=== PATIENT | male | born 1985 | race Two or more races ===

== ENCOUNTER 2020-12-03 17:16 | Emergency (ER) | payer OTHER ==
[~2020-12-03] VITALS: Ht 175.3 cm; Wt 68.0 kg
[2020-12-03] MEDS ORDERED: IBUPROFEN 800 MG TAB PO ONE (19:30)
[2020-12-03 19:52] VITALS: BP 139/92
== END 2020-12-03 20:55 | disposition home or self-care (01) ==
LOC: ER 17:20
DX: S16.1XXA Strain of muscle, fascia and tendon at neck level, initial encounter (principal); R51.9 Headache, unspecified; R07.89 Other chest pain; V43.52XA Car driver injured in collision with other type car in traffic accident, initial encounter; Y93.89 Activity, other specified; Y92.410 Unspecified street and highway as the place of occurrence of the external cause; Y99.8 Other external cause status
CPT/HCPCS: 71250; 72070; 72125; 74176